=== PATIENT | female | born 1990 | race Caucasian/White ===

== ENCOUNTER 2019-10-24 11:06 | Emergency (ER) | payer BC ==
[~2019-10-24] VITALS: Ht 172.7 cm; Wt 58.9 kg
[2019-10-24] MEDS ORDERED: IV NORMAL SALINE 1,000ML 1,000 ML IV SCH (11:21)
--- NOTE | 2019-10-24 11:26 | PHYS DOC ---
Past History Past Medical History: Hypothyroid Past Surgical History: Other ( section) General Adult EDM: Chief Complaint: NAUSEA/VOMITING/DIARRHEA HPI: HPI: Healthy 29-year-old female with history of hypothyroidism, who presents for evaluation of nausea and vomiting. Reports multiple episodes of nonbloody/nonbilious emesis beginning overnight. She reports drinking 3 margaritas yesterday evening, and began to feel unwell thereafter. She reports diffuse body aches. No abdominal pain. No diarrhea. Review of Systems: Review of Systems: Gen: No fever, chills. Eyes: No blurred vision, diplopia. ENT: No nasal congestion, sore throat. CV: No CP, palpitations. Resp. No SOB, cough. GI: No abd pain.reports N/V. : No dysuria, hematuria. Neuro: No LOWE, dizziness, weakness. MSK: No back pain. Reports myalgias. Skin: No acute rash or lesion. Heart Score: Risk Factors: Risk Factors: DM, Current or recent (<one month) smoker, HTN, HLP, family history of CAD, obesity. Risk Scores: Score 0 - 3: 2.5% MACE over next 6 weeks - Discharge Home Score 4 - 6: 20.3% MACE over next 6 weeks - Admit for Clinical Observation Score 7 - 10: 72.7% MACE over next 6 weeks - Early Invasive Strategies Physical Exam: PE: Gen: NAD. Head: NC/AT. Eyes: No scleral icterus. No conjunctival injection. ENT: MMM. Posterior OP clear. Neck: Supple. NT. CV: RRR. Peripheral pulses intact. Resp: CTAB. Abd: Soft. NT. ND. MSK: No peripheral cyanosis. No edema. Neuro: Awake and alert. Skin. Warm. Dry. Psych: Appropriate mood & affect. EKG: EKG: [] Radiology/Procedures: Radiology/Procedures: [] Course & Med Decision Making: Course & Med Decision Making Pertinent Labs and Imaging studies reviewed. (See chart for details) In summary, healthy 29-year-old female who presents for evaluation of nausea and vomiting in the setting of alcohol consumption yesterday. Benign abdominal exam. Hemodynamically stable. Lab work obtained and largely unremarkable as well. No gross electrolyte derangement. Normal renal function. No leukocytosis or anemia. Patient received IV fluids and Zofran with efficacy. The patient feels well at this time. She'll be discharged home with outpatient follow-up. Prescription for Zofran. Return precautions given. Kvng Disclaimer: Kvng Disclaimer: This electronic medical record was generated, in whole or in part, using a voice recognition dictation system. Departure Departure: Impression: Primary Impression: Nausea and vomiting Disposition: HOME/RESIDENCE PRIOR TO ADM Condition: STABLE Referrals: ZOILA MARTINEZ PAC (PCP) Patient Instructions: Nausea and Vomiting, [id number] Scripts Ondansetron (ONDANSETRON ODT) 4 Mg Tab.rapdis 1 TAB PO PRN Q6-8HRS for nausea, #16 TAB Prov: AKBAR MEHTA DO 10/24/19 Justification of Admission: Justification of Admission: Justification of Admission Dx: N/A AKBAR MEHTA DO Oct 24, 2019 11:26
[2019-10-24] MEDS ORDERED: ONDANSETRON PF 4 MG/2 ML VIAL. IVP ONE (11:30)
[2019-10-24 12:05] LABS: BASO % 0 % (0-3); EOS % 0 % (0-3); HEMATOCRIT 40.5 % (36.0-47.0); HEMOGLOBIN 13.8 g/dL (12.0-15.5); LYMPH # 1.1 x10^3/uL (1.0-4.8); LYMPH % 10 % (24-48); MEAN CORPUSCULAR HEMOGLOBIN 31 pg (25-35); MEAN CORPUSCULAR HGB CONC 34 g/dL (31-37); MEAN CORPUSCULAR VOLUME 92 fL (79-100); MONO # 0.3 x10^3/uL (0.0-1.1); MONO % 3 % (0-9); NEUT # 9.2 x10^3uL (1.8-7.7); NEUT % 87 % (31-73); PLATELET COUNT 271 x10^3/uL (140-400); RED BLOOD COUNT 4.41 x10^6/uL (3.50-5.40); RED CELL DISTRIBUTION WIDTH 13.3 % (11.5-14.5); WHITE BLOOD COUNT 10.7 x10^3/uL (4.0-11.0)
[2019-10-24 12:11] LABS: CALCIUM 9.1 mg/dL (8.5-10.1); CREATININE 0.7 mg/dL (0.6-1.0); GFR 99.6; POTASSIUM 3.7 mmol/L (3.5-5.1)
[2019-10-24 12:17] LABS: ALBUMIN 4.2 g/dL (3.4-5.0); ALBUMIN/GLOBULIN RATIO 1.1 (1.0-1.7); MAGNESIUM 1.9 mg/dL (1.8-2.4); TOTAL BILIRUBIN 0.7 mg/dL (0.2-1.0); TOTAL PROTEIN 7.9 g/dL (6.4-8.2)
[2019-10-24 12:28] LABS: BACTERIA,URINE FEW /HPF (0-FEW); BILIRUBIN,URINE NEG (NEG); CLARITY,URINE HAZY; COLOR,URINE YELLOW; GLUCOSE,URINE NEG (NEG); NITRITE,URINE NEG (NEG); SQUAMOUS EPITHELIAL CELL,UR MANY /LPF; UROBILINOGEN,URINE 0.2 mg/dL (0.2 mg/dL)
[2019-10-24] MEDS ORDERED: ONDA4TAB12 PO (12:51)
[2019-10-24 13:07] VITALS: BP 114/61
== END 2019-10-24 13:07 | disposition home or self-care (01) ==
LOC: ER 11:06
DX: R11.2 Nausea with vomiting, unspecified (principal); M79.10 Myalgia, unspecified site; E03.9 Hypothyroidism, unspecified
CPT/HCPCS: 36415; 80053; 81001; 81025; 83690; 83735; 85025; 96361; 96374; 99283; J2405; J7030